=== PATIENT | female | born 1960 | race Caucasian/White ===

== ENCOUNTER 2018-11-25 18:33 | Inpatient (IN) | payer OTHER ==
[~2018-11-25] VITALS: Ht 167.6 cm; Wt 86.2 kg
[2018-11-25 18:44] VITALS: BP 168/82
[2018-11-25 19:08] LABS: ABSOLUTE BASOPHILS 0.1 thou/uL (0.0-0.2); ABSOLUTE EOSINOPHILS 0.1 thou/uL (0.0-0.7); ABSOLUTE LYMPHOCYTES 1.9 thou/uL (0.8-5.3); ABSOLUTE MONOCYTES 0.4 thou/uL (0.0-1.2); ABSOLUTE NEUTROPHILS 4.7 thou/uL (1.6-8.1); BASOPHILS 0.9 %; HEMATOCRIT 41.7 % (37.0-47.0); HEMOGLOBIN 14.2 gm/dL (12.0-15.0); MCH 29.9 pg (26.0-34.0); MCV 88.1 fL (80.0-100.0); MONOCYTES 5.1 %; MPV 9.5 fl. (7.2-11.1); NUCLEATED RBCS 0 /100WBC; PLATELET COUNT* 222 thou/uL (150-400); RBC 4.73 mil/uL (4.20-5.00); RDW-CV 12.8 % (10.5-14.5); WBC 7.1 thou/uL (4.0-11.0)
[2018-11-25 19:14] LABS: URINE BILIRUBIN NEGATIVE (Negative); URINE BLOOD NEGATIVE (Negative); URINE CLARITY CLEAR; URINE COLOR STRAW; URINE GLUCOSE-RANDOM NEGATIVE (Negative); URINE KETONES NEGATIVE (Negative); URINE LEUKOCYTES-REFLEX NEGATIVE (Negative); URINE NITRITE-REFLEX NEGATIVE (Negative); URINE PROTEIN NEGATIVE (Negative); URINE UROBILINOGEN 0.2 E.U./dl (0.2-1.0)
[2018-11-25] MEDS ORDERED: CHOLESTEROL MED (19:17)
[2018-11-25] MEDS ORDERED: ESTROGEN (19:18)
[2018-11-25 19:21] LABS: CALCIUM 9.4 mg/dL (8.5-10.1); CREATININE 0.7 mg/dL (0.6-1.3); POTASSIUM 3.2 mmol/L (3.5-5.1)
[2018-11-25 19:25] LABS: APTT 28.4 Seconds (25.0-31.3); PROTIME 10.4 Seconds (9.20-11.50)
[2018-11-25 19:32] LABS: ALBUMIN 3.8 g/dL (3.4-5.0); TOTAL BILIRUBIN 0.3 mg/dL (<0.1-1.0); TOTAL PROTEIN 7.7 g/dL (6.4-8.2)
[2018-11-25 19:32] LABS: AMP/METHAMP Negative (Negative); BARBITURATES Negative (Negative); BENZODIAZEPINES Negative (Negative); COCAINE Negative (Negative); METHADONE Negative (Negative); OPIATES Negative (Negative); PCP Negative (Negative); THC Negative (Negative)
[2018-11-25 21:00] VITALS: BP 150/76; BP 153/74
--- NOTE | 2018-11-25 23:30 | NUR ---
58 Y/0 FEMALE ADMITTED TO TELEMETRY ROOM 210 WITH AN ADMITTING DIAGNOSIS OF TRANSIENT GLOBAL AMNESIA. PT HAS HX OF SCOLIOSIS, HLD, PARTIAL HYSTERECTOMY, LEFT FINGER AND WRIST FX REPAIR WITH PLATE PLACEMENT. ASSESSMENT COMPLETE, UNREMARKABLE, REFER TO CHARTING FOR DETAILS. TRACING SR WITH PAC'S. NIH = 0. FALL PRECAUTIONS IN PLACE. HOURLY ROUNDING FOR PT SAFETY. CLWR.
[2018-11-26] VITALS: BP 132/64
[2018-11-26 04:00] VITALS: BP 117/57
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
[2018-11-26 08:00] VITALS: BP 110/72
[2018-11-26 12:00] VITALS: BP 158/70
[2018-11-26 15:57] VITALS: BP 158/70
[2018-11-26 16:00] VITALS: BP 136/57
--- NOTE | 2018-11-26 16:33 | NUR ---
ASSESSMENT CHARTED. AFEBRILE. VITALS STABLE. NEURO SPOKE WITH PT AND MRA AND MRI PERFORMED. PT GIVEN D/C PAPEROWRK AND ORDERS TO FOLLOW UP WITH NEURO AND PCP DIRECTED. ALL QUESTIONS ANSWERED. PT LEFT UNIT AROUND 1630 WITH FAMILY AND NURSE TECH.
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
== END 2018-11-26 16:30 | disposition home or self-care (01) | DRG 71 ==
LOC: M.ERS 18:33 → M.TBA-ER 20:21 → M.2W 20:50
PROVIDERS: Personal Emergency Response Attendant; ADMIT Internal Medicine
DX: G45.4 Transient global amnesia (principal); G45.9 Transient cerebral ischemic attack, unspecified; E78.5 Hyperlipidemia, unspecified; E78.00 Pure hypercholesterolemia, unspecified; F12.90 Cannabis use, unspecified, uncomplicated; G43.909 Migraine, unspecified, not intractable, without status migrainosus; T41.295A Adverse effect of other general anesthetics, initial encounter; Y92.89 Other specified places as the place of occurrence of the external cause; Z88.0 Allergy status to penicillin; Z88.7 Allergy status to serum and vaccine; Z91.040 Latex allergy status; Z90.711 Acquired absence of uterus with remaining cervical stump; Z82.49 Family history of ischemic heart disease and other diseases of the circulatory system

== ENCOUNTER 2019-07-25 05:54 | Emergency (ER) | payer OTHER ==
[~2019-07-25] VITALS: Ht 170.2 cm; Wt 81.7 kg
[~2019-07-25 05:54] MED LIST: CHOLESTEROL MED; ESTROGEN
[2019-07-25] MEDS ORDERED: ATORVASTATIN (06:03)
[2019-07-25] MEDS ORDERED: MELATONIN3 MG PO (06:03)
[2019-07-25 06:30] LABS: NUCLEATED RBCS 0 /100WBC; WBC 12.5 thou/uL (4.0-11.0)
[2019-07-25 06:34] LABS: ABSOLUTE LYMPHOCYTES 1.2 thou/uL (0.8-5.3); ABSOLUTE MONOCYTES 0.7 thou/uL (0.0-1.2); ABSOLUTE NEUTROPHILS 10.6 thou/uL (1.6-8.1); BASOPHILS 0.3 %; EOSINOPHILS 0.1 %; HEMATOCRIT 39.6 % (37.0-47.0); HEMOGLOBIN 13.5 gm/dL (12.0-15.0); LYMPHOCYTES 9.5 %; MCH 29.9 pg (26.0-34.0); MCHC 34.2 g/dL (28.0-37.0); MCV 87.2 fL (80.0-100.0); MONOCYTES 5.5 %; MPV 9.6 fl. (7.2-11.1); PLATELET COUNT* 227 thou/uL (150-400); POLYS 84.6 %; RBC 4.54 mil/uL (4.20-5.00); RDW-CV 12.9 % (10.5-14.5)
[2019-07-25 06:37] LABS: URINE BILIRUBIN NEGATIVE (Negative); URINE BLOOD NEGATIVE (Negative); URINE CLARITY CLEAR; URINE COLOR YELLOW; URINE GLUCOSE-RANDOM NEGATIVE (Negative); URINE KETONES NEGATIVE (Negative); URINE LEUKOCYTES-REFLEX NEGATIVE (Negative); URINE NITRITE-REFLEX NEGATIVE (Negative); URINE PROTEIN TRACE (Negative); URINE SPECIFIC GRAVITY 1.015 (1.005-1.030); URINE UROBILINOGEN 0.2 E.U./dl (0.2-1.0)
[2019-07-25 06:37] LABS: CALCIUM 8.8 mg/dL (8.5-10.1); CREATININE 0.7 mg/dL (0.6-1.3); POTASSIUM 3.8 mmol/L (3.5-5.1)
[2019-07-25 06:42] LABS: ALBUMIN 3.6 g/dL (3.4-5.0); TOTAL BILIRUBIN 0.5 mg/dL (<0.1-1.0); TOTAL PROTEIN 7.3 g/dL (6.4-8.2)
[2019-07-25] MEDS ORDERED: ZOFRAN4 MG PO (08:21)
[2019-07-25] MEDS ORDERED: LEVAQUIN 750 M750 MG PO (08:21)
[2019-07-25] MEDS ORDERED: HYDROCODON-ACE1 EAC7 PO (08:21)
[2019-07-25] MEDS ORDERED: FLAGYL500 M1 PO (08:21)
[2019-07-25 08:43] VITALS: BP 114/56
--- NOTE | 2019-07-25 10:18 | EKG ---
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
== END 2019-07-25 08:45 | disposition home or self-care (01) ==
LOC: M.ERS 05:54
PROVIDERS: Emergency Medicine
DX: K57.32 Diverticulitis of large intestine without perforation or abscess without bleeding (principal); M41.9 Scoliosis, unspecified; E78.5 Hyperlipidemia, unspecified; Z88.1 Allergy status to other antibiotic agents; Z91.040 Latex allergy status; Z88.0 Allergy status to penicillin; Z88.7 Allergy status to serum and vaccine; Z90.711 Acquired absence of uterus with remaining cervical stump

== ENCOUNTER 2020-09-08 01:49 | Emergency (ER) | payer OTHER ==
[~2020-09-08 01:49] MED LIST changes: +ATORVASTATIN; +FLAGYL500 M1 PO; +HYDROCODON-ACE1 EAC7 PO; +LEVAQUIN 750 M750 MG PO; +MELATONIN3 MG PO; +ZOFRAN4 MG PO
== END 2020-09-08 02:00 | disposition left against medical advice (07) ==
LOC: M.ERS 01:49
DX: Z53.21 Procedure and treatment not carried out due to patient leaving prior to being seen by health care provider (principal)

== ENCOUNTER 2021-05-19 17:39 | Emergency (ER) | payer OTHER, BC ==
[~2021-05-19] VITALS: Ht 167.6 cm; Wt 78.9 kg
[2021-05-19] MEDS ORDERED: EZALLOR SPRINKL10 MG PO (18:06)
[2021-05-19] MEDS ORDERED: SUPER B-50 COM1 EACH PO (18:07)
[2021-05-19] MEDS ORDERED: FISH OIL 1,0001 EAC9 PO (18:07)
[2021-05-19] MEDS ORDERED: VITAMIN C60 MG PO (18:07)
[2021-05-19 19:47] LABS: URINE BILIRUBIN NEGATIVE (Negative); URINE BLOOD TRACE (Negative); URINE CLARITY CLEAR; URINE COLOR YELLOW; URINE GLUCOSE-RANDOM NEGATIVE (Negative); URINE KETONES 1+ (Negative); URINE LEUKOCYTES-REFLEX NEGATIVE (Negative); URINE NITRITE-REFLEX NEGATIVE (Negative); URINE PROTEIN NEGATIVE (Negative); URINE SPECIFIC GRAVITY >= 1.030 (1.005-1.030); URINE UROBILINOGEN 0.2 E.U./dl (0.2-1.0)
[2021-05-19 20:00] LABS: ABSOLUTE BASOPHILS 0.1 thou/uL (0.0-0.2); ABSOLUTE LYMPHOCYTES 0.9 thou/uL (0.8-5.3); ABSOLUTE MONOCYTES 0.9 thou/uL (0.0-1.2); ABSOLUTE NEUTROPHILS 10.4 thou/uL (1.6-8.1); BASOPHILS 0.5 %; EOSINOPHILS 0.2 %; HEMATOCRIT 40.3 % (37.0-47.0); HEMOGLOBIN 14.1 gm/dL (12.0-15.0); LYMPHOCYTES 7.6 %; MCH 30.2 pg (26.0-34.0); MCHC 34.8 g/dL (28.0-37.0); MCV 86.7 fL (80.0-100.0); MONOCYTES 7.1 %; NUCLEATED RBCS 0 /100WBC; PLATELET COUNT* 202 thou/uL (150-400); POLYS 84.6 %; RBC 4.66 mil/uL (4.20-5.00); RDW-CV 12.6 % (10.5-14.5); WBC 12.3 thou/uL (4.0-11.0)
[2021-05-19 20:10] LABS: CREATININE 0.7 mg/dL (0.6-1.3); POTASSIUM 3.9 mmol/L (3.5-5.1)
[2021-05-19] MEDS ORDERED: CIPRO500 M1 PO (22:21)
[2021-05-19] MEDS ORDERED: FLAGYL500 M1 PO (22:21)
[2021-05-19] MEDS ORDERED: ZOFRAN4 MG PO (22:22)
[2021-05-19 22:46] VITALS: BP 125/70
--- NOTE | 2021-05-20 16:25 | EKG ---
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 05/20/21 5059 00 00 Paul Jiang MD, FAC /EPI
== END 2021-05-19 22:47 | disposition home or self-care (01) ==
LOC: M.ERS 17:39
PROVIDERS: Nurse Practitioner Family; Nurse Practitioner Psychiatric/Mental Health
DX: K57.32 Diverticulitis of large intestine without perforation or abscess without bleeding (principal); E78.5 Hyperlipidemia, unspecified; Z90.711 Acquired absence of uterus with remaining cervical stump; Z88.1 Allergy status to other antibiotic agents; Z91.040 Latex allergy status; Z88.0 Allergy status to penicillin